=== PATIENT | female | born 1990 | race Caucasian/White ===

== ENCOUNTER 2024-01-05 10:40 | Outpatient (CLI) | payer OTHER ==
[~2024-01-05 10:40] MED LIST: BACTRIM DS TAB1 EACH PO; BENADRYL25 MG/STRI PO; BENADRYL50 MG PO; FLUCONAZOLE150 MG PO; INTESTINEX680 M1 PO; KETO10TA2 PO; MEDROL4 MG PO; MEDROL8 MG PO; ORPH100T PO; PEPCID40 MG PO; PREDNISONE5 MG/DOSE- PO; RELAGESIC TABL1 EACH PO; TRAMADOL HCL50 MG PO; VALACYCLOVIR1000 MG PO; VALTREX1000 MG; ZITHROMAX500 MG PO
[2024-01-05 11:34] LABS: URINE APPEARANCE Clear; URINE BILIRRUBIN Negative (NEGATIVE); URINE BLOOD Trace; URINE COLOR Yellow; URINE GLUCOSE Negative (NEGATIVE); URINE KETONE Negative (NEGATIVE); URINE LEUKOCYTE Negative; URINE NITRATE Negative; URINE PROTEIN Negative (NEGATIVE); URINE UROBILINOGEN 0.2 E.U./dl
[2024-01-05 11:37] LABS: URINE EPITHELIAL CELLS 23.1 uL (0.0-38.8); URINE RBC 3.6 uL (0.0-20.8); URINE WBC 11.1 uL (0.0-23.2)
== END 2024-01-05 10:50 | disposition home or self-care (01) ==
LOC: LAB 10:40
PROVIDERS: ATTEND Obstetrics & Gynecology
DX: N39.0 Urinary tract infection, site not specified (principal)

== ENCOUNTER 2024-01-11 07:45 | Inpatient (IN) | payer OTHER ==
[~2024-01-11] VITALS: Ht 157.5 cm; Wt 78.0 kg
[2024-01-11 08:52] LABS: HEMATOCRIT 40.9 % (36.0-45.00); HEMOGLOBIN 13.6 g/dL (12.0-15.00); MEAN CELL VOLUME 87.3 fL (80.00-100.00); MEAN CORPUSCULAR HGB CONC 33.3 g/dl (32.0-36.0); PLATELET COUNT 262 K/uL (150-450); RED BLOOD COUNT 4.68 M/uL (4.00-6.00); RED CELL DISTRIBUTION WIDTH 14.7 % (11.5-14.5)
[2024-01-11 08:58] LABS: PH,URINE 5.5 (5.0-8.0); URINE APPEARANCE Cloudy; URINE BILIRRUBIN Negative (NEGATIVE); URINE BLOOD Trace; URINE COLOR Yellow; URINE GLUCOSE Negative (NEGATIVE); URINE KETONE Negative (NEGATIVE); URINE LEUKOCYTE Negative; URINE NITRATE Negative; URINE PROTEIN Negative (NEGATIVE); URINE UROBILINOGEN 0.2 E.U./dl
[2024-01-11 09:07] LABS: URINE BACTERIA 2330.9 uL (0.0-1933); URINE EPITHELIAL CELLS 73.8 uL (0.0-38.8); URINE RBC 19.3 uL (0.0-20.8); URINE WBC 52.4 uL (0.0-23.2)
[2024-01-11] MEDS ORDERED: VALTREX1000 MG PO (09:07)
[2024-01-11 09:41] LABS: INR 0.99; PARTIAL THROMBOPLASTIN TIME 29.1 SECONDS (22.0-34.0); PROTHROMBIN TIME 10.8 SECONDS (9.0-11.5)
[2024-01-11 10:42] LABS: ALBUMIN 3.8 gm/dL (3.4-5.0); BILIRUBIN TOTAL 0.44 mg/dL (0.3-1.2); CALCIUM 9.2 mg/dL (8.5-10.1); CREATININE SERUM 0.59 mg/dL (0.55-1.02); GFR 117.38; GLOBULINA 3.5 G/DL (2.4-3.5); POTASSIUM 4.14 mEq/L (3.5-5.1); TOTAL PROTEIN 7.3 gm/dL (6.4-8.2)
[2024-01-24] MEDS ORDERED: CEFAZOLIN SODIUM 1,000 MG VIAL ONE (13:59)
[2024-01-24] MEDS ORDERED: LIDOCAINE HCL 1%/EPINEPHRINE 20ML VIAL IJ ONE (15:52)
[2024-01-24] MEDS ORDERED: THROMBIN,HU/FIBRINOGEN/CALCIUM 10 ML SYRINGE TOP ONE (16:42)
[2024-01-24] MEDS ORDERED: RINGERS SOLUTION,LACTATED 1,000 ML IV SCH (18:45)
[2024-01-24] MEDS ORDERED: IBUprofen 800 MG TABLET PO PRN (19:00)
[2024-01-24] MEDS ORDERED: ACETAMINOPHEN 325 MG TABLET PO PRN (19:00)
[2024-01-24] MEDS ORDERED: KETOROLAC TROMETHAMINE 30 MG VIAL IV SCH (20:00)
[2024-01-24] MEDS ORDERED: ONDANSETRON HCL 2 MG/ML VIAL IV SCH (21:00)
[2024-01-24 21:52] LABS: ALBUMIN 3.5 gm/dL (3.4-5.0); BILIRUBIN TOTAL 0.48 mg/dL (0.3-1.2); CALCIUM 8.9 mg/dL (8.5-10.1); CREATININE SERUM 0.63 mg/dL (0.55-1.02); GFR 108.83; GLOBULINA 3.2 G/DL (2.4-3.5); POTASSIUM 4.32 mEq/L (3.5-5.1); TOTAL PROTEIN 6.7 gm/dL (6.4-8.2)
[2024-01-24 21:59] VITALS: BP 137/82
[2024-01-25 00:33] VITALS: BP 130/81
[2024-01-25 04:30] VITALS: BP 103/71
[2024-01-25 07:59] LABS: HEMATOCRIT 34.7 % (36.0-45.00); HEMOGLOBIN 11.6 g/dL (12.0-15.00); MEAN CELL VOLUME 86.7 fL (80.00-100.00); MEAN CORPUSCULAR HEMOGLOBIN 29.1 pg (27.00-32.0); MEAN CORPUSCULAR HGB CONC 33.5 g/dl (32.0-36.0); PLATELET COUNT 267 K/uL (150-450); RED CELL DISTRIBUTION WIDTH 14.2 % (11.5-14.5)
[2024-01-25 09:30] VITALS: BP 116/75
[2024-01-25 18:26] VITALS: BP 106/72
[2024-01-26] VITALS: BP 115/75
[2024-01-26 09:16] VITALS: BP 109/74
[2024-01-26 16:51] VITALS: BP 139/83
== END 2024-01-26 17:47 | disposition home or self-care (01) | DRG 743 ==
LOC: SURH 01-17 07:00 → O/R 01-24 07:27 → OB/GYN 01-24 19:01
PROVIDERS: ADMIT Obstetrics & Gynecology; ATTEND Obstetrics & Gynecology
PROC: 0UB70ZZ Excision of Bilateral Fallopian Tubes, Open Approach (ICD-10-PCS; 2024-01-24)
PROC: 0UB90ZZ Excision of Uterus, Open Approach (ICD-10-PCS; principal; 2024-01-24 15:25)
DX: D25.9 Leiomyoma of uterus, unspecified (principal); Z20.822 Contact with and (suspected) exposure to COVID-19; Z30.2 Encounter for sterilization

== ENCOUNTER 2024-08-03 10:30 | Outpatient (CLI) | payer OTHER ==
[~2024-08-03 10:30] MED LIST changes: +VALTREX1000 MG PO
== END 2024-08-03 14:04 | disposition home or self-care (01) ==
LOC: SONOGRAMA 10:30
PROVIDERS: ATTEND Obstetrics & Gynecology
DX: D25.9 Leiomyoma of uterus, unspecified (principal)